=== PATIENT | male | born 1990 | race Caucasian/White ===

== ENCOUNTER 2016-12-29 11:28 | Emergency (ER) | payer OTHER ==
--- NOTE | 2016-12-29 11:39 | ED.REPORT ---
HPI-Trauma Minor / Fall Date of Service Dec 29, 2016 ED Provider: Olu Stephenson DO Pt is a healthy 26 y/o male who presents to the ED via EMS with a 3 inch nail shot through his left ear into mastoid bone by a nail gun onset prior to arrival. Per EMS, there was no active bleeding and his airway was intact. Pt states that he was working when the nail was shot, but he feels fine with severity at 2/10. He denies neck pain, LOC, headache, chest pain, back pain, abdominal pain, SOB, focal weakness, or any other symptoms. He also denies any other injuries. Nursing Notes Stated Complaint: FULL TRAUMA Chief Complaint: Trauma/Critical Care Nursing Notes Reviewed: Yes Allergies: Coded Allergies: No Known Allergies (Unverified , 12/29/16) Scheduled Cephalexin (Keflex) 500 Mg Capsule 500 MG PO QID General Time Seen by MD: 11:39 Chief Complaint Other (Nail in ear and mastoid bone) Hx Obtained From: Patient, EMS Arrived By: Ambulance Onset Occurred: Just prior to arrival Location: Head Quality: Painful Severity: Current: Pain level 2 out of 10 Severity: Maximum: Moderate Context: Immunizations All up to date Recent Healthcare: No recent doctor visit, No recent hospitalization Similar Sx Previous: No Past Medical History Past Medical History Denies Smoking History Never Smoker Social History Alcohol Use: "Social" Drug Use: Denies drug use Ambulatory Status Independent Review of Systems 3 inch nail shot through his left ear into mastoid bone by a nail gun Respiratory: Denies: Shortness of breath Musculoskeletal: Denies: Back pain, Neck pain Neurologic: Denies: Change LOC, Focal weakness, Headache Complete sys rev & neg: except as marked. GI: Denies: Abdominal pain Physical Exam Initial Vital Signs Vital Signs (First) Date Time Temp Pulse Resp B/P Pulse Ox O2 Delivery O2 Flow Rate FiO2 12/29/16 13:10 36.6 68 20 135/80 98 Room Air Initial VS: Reviewed Abdomen / GI: Soft, Non-tender Skin: Warm, Dry, No cyanosis Neurologic: Alert, Oriented, Nonfocal Psychiatric: Mood/affect normal, Behavior normal, Normal thought content General/Constitutional: Awake, Alert Neck: Supple, Non-tender Head / Eyes: Normocephalic Nail through left lobe of ear into soft tissues of skull base and cervical junction No expanding hematoma ENT: Atraumatic, Airway patent, Tympanic membs NL Respiratory / Chest: Atraumatic, Breath sounds NL, Breath sounds = bilat, No respiratory distress Normal vocalization Cardiovascular: Heart rate NL, Regular rhythm, Heart sounds NL Back: Atraumatic, Full range of motion, No midline vertebral tend Interpretation & Diagnostics CT SOFT TISSUE NECK WITH CONTRAST: IMPRESSION: 1. Metallic foreign body consistent with a nail extends into the left posterior paraspinal muscles in the neck without an associated discrete hematoma or definite evidence of active extravasation. Dictated by: Amilcar Jackson M.D. on 12/29/2016 at 12:12 Approved by: Amilcar Jackson M.D. on 12/29/2016 at 12:17 Lab Results Interpretation Result Diagram: 12/29/16 1130 12/29/16 1130 Test 12/29/16 11:30 White Blood Count 5.1th/mm3 (3.8-10.1) Red Blood Count 5.36mil/mm3 (4.40-5.80) Hemoglobin 16.8g/dL (13.8-17.2) Hematocrit 46.9% (41.0-50.0) Mean Corpuscular Volume 87.5fL (81-100) Mean Corpuscular Hemoglobin 31.3pg (27.0-35.0) Mean Corpuscular Hemoglobin Concent 35.8% (32.0-37.0) Red Cell Distribution Width 11.6% (12.3-15.4) Platelet Count 221bil/L (150-400) Neutrophils (%) (Auto) 68.9% (40-74) Lymphocytes (%) (Auto) 19.4% (14-46) Monocytes (%) (Auto) 8.1% (4-12) Eosinophils (%) (Auto) 3.2% (0-5) Basophils (%) (Auto) 0.4% (0-3) Sodium Level 142mEq/L (134-144) Potassium Level 4.0mEq/L (3.5-5.2) Chloride Level 100mEq/L (97-108) Carbon Dioxide Level 24mmol/L (18-29) Blood Urea Nitrogen 16mg/dL (6-20) Creatinine 0.70mg/dL (0.76-1.27) Estimat Glomerular Filtration Rate 147mL/min (>59) Glucose Level 121mg/dL (60-99) Calcium Level 10.1mg/dL (8.5-10.1) CT Head Interpretation IMPRESSION: 1. No acute intracranial abnormality. 2. Metallic foreign body consistent with a nail extending into the left posterior neck soft tissues with the tip not included on the current study. Recommend correlation with the concurrent study of the neck. No fractures identified. Dictated by: Amilcar Jackson M.D. on 12/29/2016 at 12:09 Approved by: Amilcar Jackson M.D. on 12/29/2016 at 12:12 Study: Head CT no contrast Interpretation / Wet Read by: Interpret - Radiologist Procedures Foreign Body Removal: Time: 1236 Procedure performed by: ED physician Given fentanyl Removed with vice legal operations manager Irrigated copiously with saline and Betadine Lab Results Interpretation Result Diagram: 12/29/16 1130 12/29/16 1130 Test 12/29/16 11:30 White Blood Count 5.1th/mm3 (3.8-10.1) Red Blood Count 5.36mil/mm3 (4.40-5.80) Hemoglobin 16.8g/dL (13.8-17.2) Hematocrit 46.9% (41.0-50.0) Mean Corpuscular Volume 87.5fL (81-100) Mean Corpuscular Hemoglobin 31.3pg (27.0-35.0) Mean Corpuscular Hemoglobin Concent 35.8% (32.0-37.0) Red Cell Distribution Width 11.6% (12.3-15.4) Platelet Count 221bil/L (150-400) Neutrophils (%) (Auto) 68.9% (40-74) Lymphocytes (%) (Auto) 19.4% (14-46) Monocytes (%) (Auto) 8.1% (4-12) Eosinophils (%) (Auto) 3.2% (0-5) Basophils (%) (Auto) 0.4% (0-3) Sodium Level 142mEq/L (134-144) Potassium Level 4.0mEq/L (3.5-5.2) Chloride Level 100mEq/L (97-108) Carbon Dioxide Level 24mmol/L (18-29) Blood Urea Nitrogen 16mg/dL (6-20) Creatinine 0.70mg/dL (0.76-1.27) Estimat Glomerular Filtration Rate 147mL/min (>59) Glucose Level 121mg/dL (60-99) Calcium Level 10.1mg/dL (8.5-10.1) Re-Eval/Medical Decision Source of Hx: Old records Re-Evaluation/Progress #1: Time of Eval: 12:36 Re-Evaluation/Progress Note: Patient rechecked. Performed foreign body removal procedure. Re-Evaluation/Progress #2: Time of Eval: 12:54 Re-Evaluation/Progress Note: Patient rechecked. Discussed plan for discharge. Patient understands and agrees with plan. F/U instructions and RTER warnings given. All questions addressed at this time. Counseled Regarding: Diagnosis, Lab results, Need for follow-up, When/why to return to ED Discharge & Departure Impression: Primary Impression: Foreign body head Encounter type: initial encounter Qualified Code: S00.95XA - Superficial foreign body of unspecified part of head, initial encounter Disposition: Home Discharge Condition All VS Reviewed: Yes Condition: Stable Additional Instructions: While in the ER today you were seen for a nail which penetrated your earlobe and back of your head. No vital organs were hit by the nail and it was removed , irrigated, and you were given a dose of antibiotics. Take Keflex to prevent infection, apply antibiotic ointment and a clean bandage daily. Avoid soaking the area and do not shower for 48 hours. Follow-up with the primary care doctor as needed for reevaluation or return to the ER as needed for signs of infection or other concerns. Referrals: Myesha Mccarty MD Attestation Portions of this note were transcribed by Frannie Jacob. I, Dr. Stephenson, personally performed the history, physical exam and medical decision-making; I reviewed and confirmed the accuracy of the information in the transcribed note. Signed by Ana Calixto, 12/29/16. copies to: Myesha Mccarty MDOlu Enamorado Dec 29, 2016 11:39 Frannie Jacob Dec 29, 2016 11:43
[2016-12-29] MEDS ORDERED: CeFAZolin Inj 2 GM in IV Premix 1 EACH IV ONE (11:40)
[2016-12-29 11:48] LABS: BASOPHILS % (AUTO) 0.4 % (0-3); EOSINOPHILS % (AUTO) 3.2 % (0-5); MONOCYTES % (AUTO) 8.1 % (4-12); Mean Corpuscular Hemoglobin 31.3 pg (27.0-35.0); Mean Corpuscular Volume 87.5 fL (81-100); NEUTROPHILS % (AUTO) 68.9 % (40-74); Platelet Count 221 bil/L (150-400)
--- NOTE | 2016-12-29 12:14 | DRSVH ---
PROCEDURE: CT BRAIN WITHOUT CONTRAST ([id number]) INDICATIONS: nail through skull base TECHNIQUE: Noncontrast 4.5 mm thick angled axial sections acquired from the foramen magnum to the vertex, with c oronal reformats. COMPARISON: [facility], CT, CT NECK SOFT TISSUE W CON, 12/29/2016, 11:50. FINDINGS: Image quality: Excellent. CSF spaces: Basal cisterns are patent. No extra-axial fluid collections. Ventricles are normal in size and shape. Brain: No intracranial hemorrhage, mass, or mass effect. Kay-white matter interface is preserved. Skull and face: There is a metallic foreign body consistent with a nail traversing the left pinna ex tending posteroinferiorly into the left posterior neck soft tissues. Calvarium and visualized facial bones appear intact. Sinuses: Visualized sinuses and mastoids are clear. IMPRESSION: 1. No acute intracranial abnormality. 2. Metallic foreign body consistent with a nail extending into the left posterior neck soft tissues with the tip not included on the current study. Recommend correlation with the concurrent study of t he neck. No fractures identified. Dictated by: Amilcar Jackson M.D. on 12/29/2016 at 12:09 Approved by: Amilcar Jackson M.D. on 12/29/2016 at 12:12
--- NOTE | 2016-12-29 12:19 | DRSVH ---
PROCEDURE: CT NECK SOFT TISSUES WITH CONTRAST ([id number]) INDICATIONS: nail through skull base TECHNIQUE: After the administration of intravenous contrast, 3.0 mm axial sections acquired from the sella to th e aortic arch. Additional oblique axial 3.0 mm sections acquired through the pharynx. 3 mm thick co jay reformats were generated. For radiation dose reduction, the following was used: automated exp osure control. COMPARISON: [facility], CT, CT BRAIN WO CON, 12/29/2016, 11:50. FINDINGS: Image quality: There is streak artifact associated with metallic foreign body. Lymph nodes: No enlarged lymph nodes seen throughout the neck. Vessels: Visualized vasculature appears patent. Neck spaces: The oropharynx, nasopharynx, and pharynx demonstrate no mucosal lesions. The vocal cor ds, false vocal cords, pyriform sinuses, epiglottis, vallecula, and tongue base all appear normal. E xtramucosal spaces appear unremarkable. Glands: The parotid and submandibular glands appear normal. Thyroid gland demonstrates no discrete nodules. Miscellaneous: There is a metallic foreign body consistent with a nail traversing the left pinna int o the left posterior neck soft tissues with the tip in the left posterior paraspinal muscles. No ass ociated fractures. No discrete hematoma or evidence of active extravasation identified with evaluati on slightly limited by metallic streak artifact. Visualized brain and orbits appear normal. Lung ap ices appear clear. Bones: No suspicious bony lesions. Visualized sinuses and mastoids appear unremarkable. IMPRESSION: 1. Metallic foreign body consistent with a nail extends into the left posterior paraspinal muscles i n the neck without an associated discrete hematoma or definite evidence of active extravasation. Dictated by: Amilcar Jackson M.D. on 12/29/2016 at 12:12 Approved by: Amilcar Jackson M.D. on 12/29/2016 at 12:17
[2016-12-29] MEDS ORDERED: Ondansetron 2 mg/mL 2 mL Inj IVPUSH PRN (12:30)
[2016-12-29] MEDS ORDERED: fentaNYL-PF 50 mCg/mL 2 mL Inj IVPUSH PRN (12:30)
[2016-12-29] MEDS ORDERED: CEPH-512 PO (12:53)
[2016-12-29 13:10] VITALS: BP 135/80; PULSE 68; RESP 20; O2SAT 98
--- NOTE | 2016-12-29 13:35 | CONS ---
[address] [address] CONSULTATION REPORT PATIENT: JEOVANY GODFREY : 1990 MR#: [id number] ADMIT: 12/29/2016 JOB ID: [id number] DATE OF SERVICE: 12/29/2016 REASON FOR CONSULTATION: Full trauma code. HISTORY OF PRESENT ILLNESS: A 26-year-old male for whom a full trauma code was called by information received from the field. 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 Upon arrival the patient is awake and alert. States he is having no pain. PAST MEDICAL HISTORY: Negative. REVIEW OF SYSTEMS: Otherwise negative. PHYSICAL EXAMINATION: He is alert, in no distress. Sitting up. He has a Commerce coma score of 15. HEENT: Through his left earlobe is a pneumatic nail. It goes through and through the earlobe and then enters the skin lateral to his left mastoid. There is no hematoma. There is no active bleeding. IMPRESSION: Pneumatic nail injury to his left ear and extending into the soft tissues at the base of his left skull. I discussed management with Dr. Stephesnon. I agree with imaging. I suspect it can just be pulled out. I do not think he needs to go to the operating room.
== END 2016-12-29 13:12 | disposition home or self-care (01) ==
LOC: EDBD 11:28 → EDUNIT# 11:28 → SED 11:28
DX: S00.85XA Superficial foreign body of other part of head, initial encounter (principal); W29.4XXA Contact with nail gun, initial encounter; Y93.89 Activity, other specified; Y92.9 Unspecified place or not applicable; Y99.8 Other external cause status
CPT/HCPCS: 36415; 69200; 70450; 70491; 80048; 85025; 86850; 96374; 96375; 99285; G0390; J0690; J3010; Q9967